=== PATIENT | female | born 1935 | race Caucasian/White ===

== ENCOUNTER 2016-04-24 08:52 | Inpatient (IN) | payer OTHER ==
--- NOTE | 2016-04-24 09:07 | CPEKG ---
Heart Rate: 93 RR Interval: 645 P-R Interval: 136 QRSD Interval: 134 QT Interval: 396 QTC Interval: [address] [place]: [address] [place]: [address] [place]: 62 EKG Severity - ABNORMAL ECG - EKG Impression: SINUS RHYTHM EKG Impression: RBBB AND LPFB EKG Impression: BORDERLINE INFERIOR Q WAVES EKG Impression: similar to previous Electronically Signed By: Mario Casiano 24-Apr-2016 10:24:05
[2016-04-24] MEDS ORDERED: ONDANSETRON 4 MG/2 ML VIAL IVP ONE (09:11)
[2016-04-24] MEDS ORDERED: NS 500 ML IV ONE (09:11)
--- NOTE | 2016-04-24 09:19 | EDPHY ---
H & P Stated Complaint: Cough x8 days, CP Source: Patient Exam Limitations: No limitations - Personal History Current Tetanus/Diphtheria Vaccine: Unsure Current Tetanus Diphtheria and Acellular Pertussis (TDAP): Unsure - Medical/Surgical History Hx Asthma: No Hx Chronic Respiratory Disease: No Hx Diabetes: No Hx Cardiac Disease: No Hx Renal Disease: No Hx Cirrhosis: No Hx Alcoholism: No Hx HIV/AIDS: No Hx Splenectomy or Spleen Trauma: No Other PMH: HTN, osteoporosis, GERD, compression fx, skin CA w muscle flap revision, aaa - Social History Smoking Status: Current every day smoker HPI/ROS: CHIEF COMPLAINT: Chest pain, cough HISTORY OF PRESENT ILLNESS: reports 10-11 days history of cough. This has been a productive cough at times and and at times dry. No shortness of breath but she has had a pleuritic, inspiratory pain in the chest and the epigastrium that started Late yesterday afternoon into the evening. It is worse with inspiration, palpation or movement of her arms. It is not necessarily worse with exertion. It does radiate but she has difficulty qualifying where this radiates to. No fever or chills. No body aches. No headaches. Nausea but no vomiting. No changes in her bowel movements. No abdominal or urinary complaints. REVIEW OF SYSTEMS: Ten systems reviewed and are negative unless otherwise noted in the HPI EXAMINATION General Appearance: Alert, no distress Head: normocephalic, atraumatic Eyes: Pupils equal and round, no conjunctival pallor or injection . EOMs intact. ENT, Mouth: Mucous membranes moist . Poor dentition. Uvula midline. No lesions or edema. Neck: Normal inspection, supple, non-tender . Painless range of motion in all planes. No meningismus. Respiratory: Scattered rhonchi. No consolidation or diminishment. Cardiovascular: Tachycardic rate of 104 beats per minute. Regular rhythm. No murmur. Pulses intact distally with good signs of perfusion. Gastrointestinal: Abdomen is soft . Moderate tenderness in the epigastrium. No tympany. No rigidity. No CVA tenderness. Nonacute abdomen. Neurological: A&O, nonfocal, normal gait . Strength symmetric in all limbs. Skin: Warm and dry, no rash Extremities: Nontender, no pedal edema Psychiatric: Mood and affect normal DIFFERENTIAL DIAGNOSES: Including but not limited to Pneumonia, bronchitis, ACS, PE, duodenitis, pancreatitis, colitis, pericarditis, pleurisy MDM: 9:20 a.m. chest pain with cough and epigastric pain. Vital signs revealed mild tachycardia but she is normotensive. She is in no acute distress. She is afebrile and has no complaints of fevers or chills recently. No headache or neck pain. No body aches. Laboratory studies have been ordered. We are ordering CT scan of the chest rule out PE and more likely pneumonia. 11:00 a.m. contacted by radiologist Dr. Ring. Notified that patient has no evidence of PE. She does have multiple findings as noted in the chart. Most significantly she has a new insufficiency fracture of the sternum and possibly of T12. She has, on the most inferior images, evidence of a AAA that is documented on previous scan. She also has old thoracolumbar fractures that are unchanged from December 2015. She also has a right lower lobe bronchus is occluded with surrounding pneumonitis but no pneumonia. I have re-evaluated the patient at this time. She is still in significant amount of pain. I will proceed with admission and we have paged the hospitalist. 11:15 a.m. I have discussed the case with the hospitalist Dr. Galindo Pardo. She has accepted the patient to the service of Dr. Justice. She is requesting an influenza swab. I asked if they would like us to draw blood cultures and lactic acid, or administer IV antibiotics, and she says that we can wait until she is evaluated by hospitalist. EKG: Interpreted by Dr. Casiano SUPERVISION:Patient was evaluated in conjunction with the supervising physician. Please see their note for details. (Reyes Shahid) Constitutional: Initial Vital Signs Temperature (C) 36.4 C 04/24/16 09:04 Heart Rate 96 04/24/16 09:04 Respiratory Rate 18 04/24/16 09:04 Blood Pressure 184/107 H 04/24/16 09:04 O2 Sat (%) 96 04/24/16 09:04 O2 Delivery Mode Room Air Allergies/Adverse Reactions: lisinopril Allergy (Verified 04/24/16 11:37) Swelling/neck,face,throat Penicillins Allergy (Verified 04/24/16 11:37) Rash Home Medications: Medication Instructions Recorded Famotidine [Pepcid 20 MG (*)] 20 mg PO DAILY 06/27/15 amLODIPine BESYLATE [Norvasc 5 mg 5 mg PO DAILY 07/06/15 (*)] Herbals/Supplements -Info Only 1 ea PO DAILY 04/24/16 amLODIPine BESYLATE [Norvasc 2.5 2.5 mg PO DAILY 04/24/16 mg (*)] Medical Decision Making Other Provider: I did evaluate this patient. She has acute reproducible sternal tenderness. This is her primary complaint. She has a barrel chest clear breath sounds. We will admit for sternal fracture, is spinal fracture of undetermined age and bronchiectasis (Mario Casiano) - Data Points Laboratory Results: Laboratory Results 04/24/16 08:55 04/24/16 08:55 04/24/16 04/24/16 04/24/16 10:09 09:17 08:55 WBC 10.44 10^3/uL H 10^3/uL (3.80-9.50) RBC 4.90 10^6/uL 10^6/uL (4.18-5.33) Hgb 15.8 g/dL g/dL (12.6-16.3) POC Hgb 15.0 gm/dL gm/dL (12.3-15.9) Hct 46.1 % % (38.0-47.0) POC Hct 44 % % (35.5-47.5) MCV 94.1 fL fL (81.5-99.8) MCH 32.2 pg pg (27.9-34.1) MCHC 34.3 g/dL g/dL (32.4-36.7) RDW 12.9 % % (11.5-15.2) Plt Count 422 10^3/uL H 10^3/uL (150-400) MPV 9.1 fL fL (8.7-11.7) Neut % (Auto) 63.7 % % (39.3-74.2) Lymph % (Auto) 24.1 % % (15.0-45.0) [place] % (Auto) 9.3 % % (4.5-13.0) Eos % (Auto) 1.5 % % (0.6-7.6) Baso % (Auto) 0.8 % % (0.3-1.7) Nucleat RBC Rel Count 0.0 % % (0.0-0.2) Absolute Neuts (auto) 6.65 10^3/uL H 10^3/uL (1.70-6.50) Absolute Lymphs (auto) 2.52 10^3/uL 10^3/uL (1.00-3.00) Absolute Monos (auto) 0.97 10^3/uL H 10^3/uL (0.30-0.80) Absolute Eos (auto) 0.16 10^3/uL 10^3/uL (0.03-0.40) Absolute Basos (auto) 0.08 10^3/uL 10^3/uL (0.02-0.10) Absolute Nucleated RBC 0.00 10^3/uL 10^3/uL (0-0.01) Immature Gran % 0.6 % % (0.0-1.1) Immature Gran # 0.06 10^3/uL 10^3/uL (0.00-0.10) POC Sodium 142 mEq/L mEq/L (134-144) Sodium POC Potassium 3.9 mEq/L mEq/L (3.3-5.0) Potassium POC Chloride 106 mEq/L mEq/L (96-108) Chloride Carbon Dioxide Anion Gap POC BUN 13 mg/dL mg/dL (7-23) BUN Creatinine POC Creatinine 0.6 mg/dL mg/dL (0.6-1.2) Estimated GFR Glucose POC Glucose 115 mg/dL H mg/dL (70-100) Calcium Total Bilirubin Conjugated Bilirubin Unconjugated Bilirubin AST ALT Alkaline Phosphatase Troponin I Total Protein Albumin Lipase Urine Color COLORLESS Urine Appearance CLEAR Urine pH 8.0 H (5.0-7.5) Ur Specific [place] 1.011 (1.002-1.030) Urine Protein NEGATIVE (NEGATIVE) Urine Ketones NEGATIVE (NEGATIVE) Urine Blood NEGATIVE (NEGATIVE) Urine Nitrate NEGATIVE (NEGATIVE) Urine Bilirubin NEGATIVE (NEGATIVE) Urine Urobilinogen NEGATIVE EU EU (0.2-1.0) Ur Leukocyte Esterase NEGATIVE (NEGATIVE) Ur Culture Indicated? NOT INDICATED (NI) Urine Glucose NEGATIVE (NEGATIVE) 04/24/16 08:55 WBC RBC Hgb POC Hgb Hct POC Hct MCV MCH MCHC RDW Plt Count MPV Neut % (Auto) Lymph % (Auto) [place] % (Auto) Eos % (Auto) Baso % (Auto) Nucleat RBC Rel Count Absolute Neuts (auto) Absolute Lymphs (auto) Absolute Monos (auto) Absolute Eos (auto) Absolute Basos (auto) Absolute Nucleated RBC Immature Gran % Immature Gran # POC Sodium Sodium 143 mEq/L mEq/L (134-144) POC Potassium Potassium 4.3 mEq/L mEq/L (3.5-5.2) POC Chloride Chloride 108 mEq/L mEq/L (97-110) Carbon Dioxide 25 mEq/l mEq/l (22-31) Anion Gap 10 mEq/L mEq/L (8-16) POC BUN BUN 14 mg/dL mg/dL (7-23) Creatinine 0.7 mg/dL mg/dL (0.6-1.0) POC Creatinine Estimated GFR > 60 Glucose 109 mg/dL H mg/dL (70-100) POC Glucose Calcium 10.0 mg/dL mg/dL (8.5-10.4) Total Bilirubin 0.7 mg/dL mg/dL (0.1-1.4) Conjugated Bilirubin 0.6 mg/dL H mg/dL (0.0-0.5) Unconjugated Bilirubin 0.1 mg/dL mg/dL (0.0-1.1) AST 22 IU/L IU/L (14-46) ALT 27 IU/L IU/L (9-52) Alkaline Phosphatase 148 IU/L H IU/L (38-126) Troponin I < 0.012 ng/mL ng/mL (0-0.034) Total Protein 7.8 g/dL g/dL (6.3-8.2) Albumin 4.1 g/dL g/dL (3.5-5.0) Lipase 53.0 IU/L IU/L (23-300) Urine Color Urine Appearance Urine pH Ur Specific [place] Urine Protein Urine Ketones Urine Blood Urine Nitrate Urine Bilirubin Urine Urobilinogen Ur Leukocyte Esterase Ur Culture Indicated? Urine Glucose Medications Given: Discontinued Medications Sodium Chloride (Ns) 500 mls @ 0 mls/hr IV ONCE ONE PRN Reason: Wide Open Stop: 04/24/16 09:12 Last Admin: 04/24/16 09:29 Dose: 500 mls Morphine Sulfate (Morphine) 4 mg IVP EDNOW ONE Stop: 04/24/16 09:17 Last Admin: 04/24/16 09:29 Dose: 4 mg Morphine Sulfate (Morphine) 4 mg IVP EDNOW ONE Stop: 04/24/16 09:49 Last Admin: 04/24/16 10:17 Dose: 4 mg Ondansetron HCl (Zofran) 4 mg IVP EDNOW ONE Stop: 04/24/16 09:12 Last Admin: 04/24/16 09:29 Dose: 4 mg Point of Care Test Results: 04/24/16 09:17 POC Sodium 142 POC Potassium 3.9 POC Chloride 106 POC BUN 13 POC Creatinine 0.6 POC Glucose 115 H Departure - Departure Disposition: [facility] Inpatient Acute Clinical Impression: Acute chest pain, Pneumonitis Sternal fracture Qualifiers: Encounter type: initial encounter Sternal location: unspecified Fracture type: closed Qualified Code(s): S22.20XA - Unspecified fracture of sternum, initial encounter for closed fracture T12 vertebral fracture Qualifiers: Encounter type: initial encounter Fracture type: closed Fracture morphology: unspecified fracture morphology Qualified Code(s): S22.089A - Unspecified fracture of T11-T12 vertebra, initial encounter for closed fracture Condition: Good
[2016-04-24 09:24] LABS: % IMMATURE GRANULYOCYTES 0.6 % (0.0-1.1); ABSOLUTE IMMATURE GRANULOCYTES 0.06 10^3/uL (0.00-0.10); ADD DIFF? NO; ADD MORPH? NO; ADD SCAN? NO; ATYPICAL LYMPHOCYTE FLAG 20 (0-99); FRAGMENT RBC FLAG 0 (0-99); HEMATOCRIT 46.1 % (38.0-47.0); HEMOGLOBIN 15.8 g/dL (12.6-16.3); LEFT SHIFT FLG 0 (0-99); LIPEMIA HEMOLYSIS FLAG 90 (0-99); MEAN CELL HEMOGLOBIN 32.2 pg (27.9-34.1); MEAN CELL HEMOGLOBIN CONCENTR. 34.3 g/dL (32.4-36.7); MEAN CELL VOLUME 94.1 fL (81.5-99.8); MEAN PLATELET VOLUME 9.1 fL (8.7-11.7); PLATELET CLUMPS FLAG 0 (0-99); PLATELET COUNT 422 10^3/uL (150-400); RED CELL DISTRIBUTION WIDTH 12.9 % (11.5-15.2)
[2016-04-24 09:26] LABS: ALANINE AMINOTRANSFERASE 27 IU/L (9-52); ALBUMIN 4.1 g/dL (3.5-5.0); ALKALINE PHOSPHATASE 148 IU/L (38-126); ANION GAP 10 mEq/L (8-16); ASPARTATE AMINOTRANSFERASE 22 IU/L (14-46); BILIRUBIN,TOTAL 0.7 mg/dL (0.1-1.4); BILIRUBIN-CONJUGATED 0.6 mg/dL (0.0-0.5); BILIRUBIN-UNCONJUGATED 0.1 mg/dL (0.0-1.1); CARBON DIOXIDE 25 mEq/l (22-31); CHLORIDE 108 mEq/L (97-110); CREATININE 0.7 mg/dL (0.6-1.0); GLOMERULAR FILTRATION RATE > 60; GLUCOSE 109 mg/dL (70-100); POTASSIUM 4.3 mEq/L (3.5-5.2); SODIUM 143 mEq/L (134-144); TOTAL PROTEIN 7.8 g/dL (6.3-8.2)
[2016-04-24 09:37] LABS: TROPONIN I < 0.012 ng/mL (0-0.034)
[2016-04-24] MEDS ORDERED: IOPAMIDOL (ISOVUE 370) 100 ML BTL IV ONE (09:40)
[2016-04-24 10:21] LABS: COLOR COLORLESS; LEUKOCYTE ESTERASE,URINE NEGATIVE (NEGATIVE); NITRITE,URINE NEGATIVE (NEGATIVE)
[2016-04-24] MEDS ORDERED: NS 1,000 ML IV SCH (12:45)
[2016-04-24] MEDS ORDERED: IBUPROFEN 200 MG TAB PO PRN (12:45)
[2016-04-24] MEDS ORDERED: ONDANSETRON 4 MG/2 ML VIAL IVP PRN (12:45)
[2016-04-24] MEDS ORDERED: ACETAMINOPHEN 325 MG TAB PO PRN (12:45)
[2016-04-24] MEDS ORDERED: ZOLPIDEM TARTRATE 5 MG TAB PO PRN (12:45)
[2016-04-24] MEDS ORDERED: BENZONATATE 100 MG CAP PO PRN (12:48)
--- NOTE | 2016-04-24 14:11 | PDGENHP ---
History and Physical History and Physical: HISTORY AND PHYSICAL ADMISSION NOTE CC: Cough and associated chest pain HISTORY: This patient is a 58 year history of smoking developed a cough about a week and half ago which has gotten worse, we little production of phlegm, no shortness of breath, no fever, no cold or flu symptoms per se. In the last 36 hours she has developed significant sharp pain at the low sternum that occurs really only during her coughing. There is no other trauma or injury there and she has no pain elsewhere. There is nothing that sounds like angina, and no pain or swelling in her legs. His no recent travel or immobilization, no weight loss. ROS: She did have some mid back pain about month ago which has improved greatly with physical therapy, no radicular symptoms. The rest of comprehensive 10 system review is negative PAST MEDICAL HISTORY: COPD Ongoing tobacco use Hypertension 3 cm abdominal aortic aneurysm Calcified lung nodules, stable on imaging Osteoporosis with compression fractures Robertson's esophagus Osteoarthritis FAMILY MEDICAL HISTORY: Hypertension SOCIAL HISTORY: Lives in a local [facility] apartment, independent Still smokes cigarettes after 62 pack years No alcohol use No falls MEDICATIONS: Her medicines are reconciled in the electronic record by our pharmacist, I have reviewed the list and ordered her home medicines as appropriate PHYSICAL EXAMINATION: Vital Signs: Hypertensive, with relatively faster heart rate though less than 100, no fever thus far Examination: General: alert, oriented, good mentation, relaxed Skin: warm, dry, good color, no rash HEENT: normal Neck: no mass or jvd No palpable adenopathy anywhere Resps: relaxed Chest: There is some significant tenderness at the inferior portion of the sternum Lungs: Very diminished but otherwise clear breath sounds Heart: regular, no murmur Abdomen: soft, nondistended, nontender, +BS, no mass Upper Extremities: normal Lower Extremities: no edema, warm, no sign of DVT No Bleeding or bruising Neurologic: normal speech/language, normal facility security officer, no focal weakness IV site: looks normal LABORATORY DATA: Mildly elevated white blood cell count otherwise unremarkable CBC, basic met panel, UA RADIOLOGY STUDIES: CT scan chest with contrast done in the ER, my review and interpretation of images: No PEs or infiltrates are present. In the right lower lobe there is some significant density in a 2nd order bronchus and there is some distal atelectasis beyond that. There are no pneumonic infiltrates. She has small calcified granulomas that were previously present. The radiologist interpretation is these nodules are stable ASSESSMENT: # pain due to a sternal insufficiency fracture caused by coughing and woman with severe osteoporosis # Either bronchopneumonia versus less likely bronchial mass but she is a long- term smoker # stable calcified lung nodules # ongoing tobacco abuse # Severe osteoporosis with compression fractures of the spine now with sternal fracture, not on therapy Will need to place her on obvious for pain management issues. At this final start with Lidoderm patches and see how much benefit we get from that and add other analgesics as needed. Plan will be to try to minimize medication side effects in this elderly woman is particularly related to falls and respiratory affects. Regarding her right bronchus finding will treat her with antibiotic with the presumption that this is infectious, however I will review her images with Dr. Adames and see if there is any reason to consider bronchoscopy. Would seem that a trial with therapy and repeat CT might be useful. Regarding her osteoporosis, she has avoided taking medications because she has some esophagitis symptoms at times and is worried about taking medicines that would affect that. She should be able to get on medications however that would be safe and effective without esophageal side effects. I will start the getting vitamin D levels and we can start appropriate vitamin D and calcium replacement therapy. It might be useful however consider seeing an tripe cooker go over a safe and effective anti resorption medicine for her. I have reviewed the patient's case in detail with Dr. Casiano I have reviewed the patient's past medical records as part of this assessment, including previous hospital visits with physician notes, laboratory and imaging results
[2016-04-24] MEDS: LIDOCAINE 5% 1 EA PATCH TD SCH (14:45)
[2016-04-24] MEDS: AZITHROMYCIN 250 MG TAB PO SCH (14:46)
[2016-04-24] MEDS: guaiFENesin 600 MG TAB.ER PO SCH ×2 (14:46→20:59)
[2016-04-24] MEDS ORDERED: PATCH REMOVAL 1 EA PATCH TD SCH (21:00)
[2016-04-25 05:25] LABS: % IMMATURE GRANULYOCYTES 0.6 % (0.0-1.1); ABSOLUTE IMMATURE GRANULOCYTES 0.05 10^3/uL (0.00-0.10); ADD DIFF? NO; ADD MORPH? NO; ADD SCAN? NO; ATYPICAL LYMPHOCYTE FLAG 10 (0-99); FRAGMENT RBC FLAG 0 (0-99); HEMATOCRIT 40.4 % (38.0-47.0); HEMOGLOBIN 13.4 g/dL (12.6-16.3); LEFT SHIFT FLG 0 (0-99); LIPEMIA HEMOLYSIS FLAG 80 (0-99); MEAN CELL HEMOGLOBIN 31.5 pg (27.9-34.1); MEAN CELL HEMOGLOBIN CONCENTR. 33.2 g/dL (32.4-36.7); MEAN CELL VOLUME 95.1 fL (81.5-99.8); MEAN PLATELET VOLUME 9.1 fL (8.7-11.7); PLATELET CLUMPS FLAG 0 (0-99); PLATELET COUNT 330 10^3/uL (150-400); RED BLOOD CELL COUNT 4.25 10^6/uL (4.18-5.33); RED CELL DISTRIBUTION WIDTH 13.1 % (11.5-15.2)
[2016-04-25 05:52] LABS: ANION GAP 7 mEq/L (8-16); CALCIUM 9.3 mg/dL (8.5-10.4); CARBON DIOXIDE 24 mEq/l (22-31); CHLORIDE 108 mEq/L (97-110); CREATININE 0.7 mg/dL (0.6-1.0); GLOMERULAR FILTRATION RATE > 60; GLUCOSE 79 mg/dL (70-100); POTASSIUM 4.5 mEq/L (3.5-5.2); SODIUM 139 mEq/L (134-144)
[2016-04-25] MEDS ORDERED: FAMOTIDINE 20 MG TAB PO SCH (09:00)
[2016-04-25] MEDS ORDERED: ENOXAPARIN 40 MG/0.4 ML SYR SC SCH (09:00)
[2016-04-25] MEDS ORDERED: amLODIPine BESYLATE 5 MG TAB PO SCH (09:00)
[2016-04-25 09:02] VITALS: RESP 20
[2016-04-25] MEDS: AZITHROMYCIN 250 MG TAB PO SCH (09:18)
[2016-04-25] MEDS: LIDOCAINE 5% 1 EA PATCH TD SCH (09:18)
[2016-04-25] MEDS: guaiFENesin 600 MG TAB.ER PO SCH (09:18)
[2016-04-25 16:15] VITALS: BP 136/76; PULSE 87; TEMP 98.1; O2SAT 89
--- NOTE | 2016-04-25 17:50 | HOSPPROG ---
Hospitalist Progress Note Assessment/Plan: DISCHARGE SUMMARY NOTE DISCHARGE DIAGNOSES: # Sternal insufficiency fracture caused by coughing with known osteoporosis # Bronchitis with mucus plugging noted in the 2nd order bronchus in the right lower lobe on CT scan # Mild COPD exacerbation and acute respiratory failure requiring oxygen # Stable pulmonary nodules on CT scan for months after there were identified in December 2015 PROCEDURES: CT scan of chest HOSPITAL COURSE SUMMARY: This patient came to the hospital complaining of ongoing cough and shortness of breath with low-grade fever. There is no definite pneumonia but there was on CT scan findings of mucous plugging in the right lower lobe. In addition the patient complains of some very sharp lower sternal pain that occurred with coughing and she was found have insufficiency fracture of the sternum with no displacement. She was admitted the hospital treated with antibiotics and Lidoderm patches as well as mucolytics and she has done very well with that here. At this point she is stable for discharge to home. Because of the insufficiency fracture of the sternum she is advised to do no lifting or heavy housework for a few weeks and her grandchildren will be taking care of that for her. Because she is a smoker of the past 62 years and has abnormal opacity in the right 2nd order bronchus is recommended that after treating her infection she have repeat CT scanning in approximately 2 months to be sure she is clearing the opacity out of her bronchus. Bronchoscopy would otherwise be indicated to rule out a mass. She is requiring home oxygen at this time so is set up with a concentrator at home. She will probably need this for 2-4 weeks. RECOMMENDED FOLLOW-UP TEST: CT SCAN OF CHEST IN 6-8 WEEKS TO EVALUATE RIGHT LOWER LOBE BRONCHUS ABNORMALITY MEDICATION CHANGES: addition of azithromycin Addition of guaifenesin and Tessalon Addition of home oxygen FOLLOW-UP PLAN: with Dr. Savana Villa in 10 days Greater than 35 minutes bedside and care coordination time today Objective: Vital Signs Temp Pulse Resp BP Pulse Ox 36.7 C 87 20 136/76 H 89 L 04/25/16 16:00 04/25/16 16:00 04/25/16 16:00 04/25/16 16:00 04/25/16 16:00 Laboratory Results 04/25/16 04:36 04/25/16 04:36 04/24/16 04/25/16 04/26/16 06:59 06:59 06:59 Intake Total 1083 Output Total 250 Balance 833 ICD10 Worksheet Patient Problems: Problems Problem Status Onset Acute chest pain Acute Pneumonitis Acute Sternal fracture Acute T12 vertebral fracture Acute Lightheadedness Acute
== END 2016-04-25 18:11 | disposition home health service (06) | DRG 542 ==
LOC: EDUNIT# → F3N 12:21
PROVIDERS: ADMIT Neurological Surgery; ATTEND Neurological Surgery
DX: M80.00XA Age-related osteoporosis with current pathological fracture, unspecified site, initial encounter for fracture (principal); J44.1 Chronic obstructive pulmonary disease with (acute) exacerbation; J96.00 Acute respiratory failure, unspecified whether with hypoxia or hypercapnia; F17.210 Nicotine dependence, cigarettes, uncomplicated; K22.70 Barrett's esophagus without dysplasia; I10 Essential (primary) hypertension; I71.4 Abdominal aortic aneurysm, without rupture; R91.8 Other nonspecific abnormal finding of lung field; Z99.81 Dependence on supplemental oxygen
CPT/HCPCS: 82947-QW; 96374; 97161-GP; 97165-GO; G8978-GP-CI; G8979-GP-CI; G8987-GO-CK; G8988-GO-CH; J1650; J2405; Q9967

== ENCOUNTER 2017-09-16 18:51 | Emergency (ER) | payer OTHER ==
--- NOTE | 2017-09-16 20:39 | EDPHY ---
HPI/HX/ROS/PE/MDM Narrative: CHIEF COMPLAINT: Right shoulder pain. HPI: This patient is a pleasant 82 year old female with history of osteoporosis and hypertension. She complains of right shoulder pain secondary to a mechanical fall around 15:00 this afternoon. She fell onto soft leather couch. Fell onto her right arm, not sure whether she threw her arm out to catch her fall or not. Did not hit her head or lose consciousness. Following this incident, her right arm was too painful to move. .Her pain is primarily over her anterior shoulder. She called a home urgent care provider who then recommended she present to ED for imaging and further evaluation. She denies any other trauma. She is not anticoagulated. She has no further complaints. REVIEW OF SYSTEMS: Aside from elements discussed in the HPI, a comprehensive 10-point review of systems was reviewed and is negative. PMH: Hypertension. Osteoporosis. History of sternum fracture. SOCIAL HISTORY: Lives in [place]. Retired. Daughter at bedside. PHYSICAL EXAM: General:Patient is alert, in no acute distress. ENT:Eyes are normal to inspection. ENT inspection normal. Neck: Normal inspection. Full range of motion. Respiratory:No respiratory distress. Breath sounds normal bilaterally. Cardiovascular: Regular rate and rhythm. Strong peripheral pulses. Normal cap refill. Back: Normal to inspection. No tenderness to palpation. Skin: Normal color. No rash. Warm and dry. Extremities: Tenderness over right anterior shoulder, pain with ROM. Neuro: Oriented x3. Normal motor function. Normal sensory function. ED Course: 82 year old female presents with right shoulder pain secondary to a mechanical fall this afternoon. Plan for x-ray right shoulder. X-ray shows comminuted nondisplaced right humeral head and neck fracture. 20:40 Reviewed images with patient. I offered admission for further observation and pain management, but the patient declines. Given her history of sternum fracture, plan for CXR to r/o any additional fractures or other trauma. CXR negative for acute trauma. See full radiologist report below. Plan to d/c home in good condition. She will follow up with an orthopedic surgeon. Right arm immobilized in sling per standard ED protocol. Provided prescription for Argyle in case of severe pain. Return precautions discussed. She is comfortable with this plan. - Data Points Imaging Results: Imaging Impressions Shoulder X-Ray 09/16/17 19:00 Impression: Comminuted nondisplaced right humeral head and neck fracture. Chest X-Ray 09/16/17 20:45 Impression: 1. Centrilobular emphysema. 2. Atherosclerotic tortuous aorta. 3. No pneumothorax or pulmonary contusion. 4. Multiple old moderate to severe mid to lower thoracic compression fractures again noted. Please clinically correlate. E:GI/amm Imaging: I viewed and interpreted images myself General Time Seen by Provider: 09/16/17 19:35 Initial Vital Signs: Initial Vital Signs Temperature (C) 36.7 C 09/16/17 18:58 Heart Rate 101 H 09/16/17 18:58 Respiratory Rate 18 09/16/17 18:58 Blood Pressure 140/80 H 09/16/17 18:58 O2 Sat (%) 94 09/16/17 18:58 O2 Delivery Mode Room Air Allergies/Adverse Reactions: lisinopril Allergy (Verified 04/24/16 11:37) Swelling/neck,face,throat Penicillins Allergy (Verified 04/24/16 11:37) Rash Home Medications: Medication Instructions Recorded Famotidine [Pepcid 20 MG (*)] 20 mg PO DAILY 06/27/15 amLODIPine BESYLATE [Norvasc 5 mg 5 mg PO DAILY 07/06/15 (*)] Herbals/Supplements -Info Only 1 ea PO DAILY 04/24/16 amLODIPine BESYLATE [Norvasc 2.5 2.5 mg PO DAILY 04/24/16 mg (*)] Acetaminophen [Tylenol 325mg (*)] 650 mg PO Q4HRS PRN #0 tab 04/25/16 Azithromycin 250 mg PO DAILY #4 tablet 04/25/16 Benzonatate [Tessalon Pear[place]] 200 mg PO TID PRN #30 cap 04/25/16 Ibuprofen [Motrin (*)] 400 mg PO Q4HRS PRN #0 tab 04/25/16 Lidocaine 5% [Lidoderm 5% Patch] 1 ea TD DAILY #30 patch 04/25/16 guaiFENesin [Mucinex 600 MG (*)] 600 mg PO BID #30 tab.er 04/25/16 Departure - Departure Disposition: Home, Routine, Self-Care Clinical Impression: Fracture of humeral head, right, closed Qualifiers: Encounter type: initial encounter Qualified Code(s): S42.291A - Other displaced fracture of upper end of right humerus, initial encounter for closed fracture Condition: Good Instructions: Hydrocodone/Acetaminophen (By mouth), Arm Fracture in Adults (ED) , Proximal Humerus Fracture (ED) Additional Instructions: Rest, ice, elevation. Take ibuprofen as directed as needed for pain. You may take Argyle as prescribed as needed for severe pain. Follow up with an orthopedic surgeon within one week. Wear sling at all times until reevaluation. Return to the emergency department for worsening pain, swelling, numbness, weakness or other concerns. Note: do not take Acetaminophen with Hydrocodone (Vicodin, Lortab) or Oycodone ( Percocet). These medications also contain Acetaminophen. No more than 3000mg of Acetaminophen should be taken in 24 hours (for an adult). Referrals: BEKA PLASENCIA [Primary Care Provider] - As per Instructions Miguel Weeks MD [Medical Doctor] - As per Instructions Report Scribed for: Rakesh Rosenbaum Report Scribed by: Shannan Pritchett Date of Report: 09/16/17 Time of Report: 20:43
[2017-09-16] MEDS ORDERED: HYDROCOD/APAP 5/325 PREPACK#6 BTL TAKEHOME ONE (21:31)
[2017-09-16 21:51] VITALS: BP 124/98
== END 2017-09-16 21:50 | disposition home or self-care (01) ==
DX: S42.291A Other displaced fracture of upper end of right humerus, initial encounter for closed fracture (principal); I10 Essential (primary) hypertension; W18.39XA Other fall on same level, initial encounter
CPT/HCPCS: 71046; 73030; A4565

== ENCOUNTER 2018-07-22 14:07 | Emergency (ER) | payer OTHER ==
--- NOTE | 2018-07-22 14:41 | EDPHY ---
H & P Stated Complaint: r flank and rlq abd pain/ hx aortic aneurysm per pt Time Seen by Provider: 07/22/18 14:45 - Personal History Current Tetanus Diphtheria and Acellular Pertussis (TDAP): No - Medical/Surgical History Hx Asthma: No Hx Chronic Respiratory Disease: No Hx Diabetes: No Hx Cardiac Disease: No Hx Renal Disease: No Hx Cirrhosis: No Hx Alcoholism: No Hx HIV/AIDS: No Hx Splenectomy or Spleen Trauma: No Other PMH: HTN, osteoporosis, GERD, compression fx, skin CA w muscle flap revision, aaa aortic aneurysm - Social History Smoking Status: Current every day smoker Constitutional: Initial Vital Signs Temperature (C) 36.6 C 07/22/18 14:15 Heart Rate 99 07/22/18 14:15 Respiratory Rate 17 07/22/18 14:15 Blood Pressure 146/90 H 07/22/18 14:15 O2 Sat (%) 93 07/22/18 14:15 O2 Delivery Mode Room Air Allergies/Adverse Reactions: lisinopril Allergy (Verified 07/24/18 20:49) Swelling/neck,face,throat Penicillins Allergy (Verified 07/24/18 20:49) Rash Home Medications: Medication Instructions Recorded amLODIPine BESYLATE [Norvasc 5 mg 10 mg PO DAILY AT 6PM 07/06/15 (*)] Sennosides/Docusate Sodium 2 each PO HS 07/24/18 [Senexon-S Tablet] Ondansetron Odt [Zofran Odt 4 mg 4 mg PO Q4 #30 tab 07/26/18 (*)] Pantoprazole Sodium [Protonix 40mg 40 mg PO DAILY #30 tab 07/26/18 (*)] oxyCODONE IR [Oxycodone Ir (*)] 2.5 mg PO Q3HRS PRN #30 tab 07/26/18 Medical Decision Making - Diagnostics Imaging: Discussed imaging studies w/ scalloper Radiologist, I viewed and interpreted images myself ED Course/Re-evaluation: CHIEF COMPLAINT: Abdominal and flank pain HISTORY OF PRESENT ILLNESS: The patient is an 83 y/o female with a history of an abdominal aortic aneurysm, GERD, and hypertension complaining of abdominal pain that is radiating around her right flank to her back. "Awhile ago" the patient was diagnosed with an AAA that measured over 6cm. She saw a specialist regarding this but declined surgery at that time. Starting Thursday night, 2 days ago she developed the abdominal pain and bloating. She had difficulty eating as it causes her symptoms to exacerbate and she starts dry heaving. She also notes that she is not passing flatulence well and has less bowel movements. No fever, headache, body aches, lightheadedness, chest pain, heart palpitations, shortness of breath , cough, urinary complaints, numbness, paresthesias. REVIEW OF SYSTEMS: A comprehensive 10 system review of systems is otherwise negative aside from elements mentioned in the history of present illness and medical decision making. PHYSICAL EXAM: HR, BP, O2 Sat, RR. Temp noted General Appearance: Alert, well hydrated, appropriate, and non-toxic appearing. Head: Atraumatic without scalp tenderness or obvious injury Eyes: Pupils equal, round, reactive to light and accommodation, EOMI, no trauma , no injection. Ears: Clear bilaterally, no perforation, normal landmarks Nose: Atraumatic, no rhinorrhea, clear. Throat: There is no erythema or exudates, no lesions, normal tonsils, mucus membranes moist. Neck: Supple, 2+ carotid upstroke, nontender, no lymphadenopathy. Respiratory: No retractions, no distress, no wheezes, and no accessory muscle use. Lungs are clear to auscultation bilaterally. Cardiovascular: Regular rate and rhythm, no murmurs, rubs, or gallops. Bilateral carotid, radial, dorsalis pedis, and posterior tibial pulses intact. Good capillary refill all extremities. Gastrointestinal: Distended abdomen with tenderness midline to right of the pericolic gutter region. Abdomen is soft, no masses, no rebound, no guarding, no peritoneal signs. Musculoskeletal: Normal active ROM of all extremities, atraumatic. Neurological: Alert, appropriate, and interactive. The patient has normal DTRs and non-focal cranial nerves, motor, sensory, and cerebellar exam. Skin: No rashes, good turgor, no nodules on palpation. Past medical history: Abdominal aortic aneurysm (over 6cm), hypertension, GERD, osteoporosis, skin cancer Past surgical history: Skin cancer surgery Family history: Denies Social history: Lives in [place], retired, family at bedside DIAGNOSTICS/PROCEDURES/CRITICAL CARE TIME: Abdominopelvic CT: Active aneurysm that has active extravasation into the mural thrombus. The posterior wall is about to dissect. No leaking outside and no dissection. DIFFERENTIAL DIAGNOSIS: The differential diagnosis for the patient's abdominal pain included but was not limited to abdominal aortic aneurysm, ovarian cyst, pelvic inflammatory disease, ovarian torsion, urinary tract infection, ectopic , cholecystitis, and appendicitis. MEDICAL DECISION MAKING: The patient is an 83 y/o female with a history of an abdominal aortic aneurysm, GERD, and hypertension presenting with abdominal pain that is radiating around her right flank to her back. "Awhile ago" the patient was diagnosed with an AAA that measured over 6cm. Starting Thursday night, 2 days ago she developed the abdominal pain and bloating. She had difficulty eating as it causes her symptoms to exacerbate and she starts dry heaving. She also notes that she is not passing flatulence well and has less bowel movements. On exam she has a distended abdomen with tenderness midline to right of the pericolic gutter region. I am concerned for a AAA rupture. Labs and abdominopelvic CT ordered; 1L IV NS and 4mg IV Zofran administered. 1647: I spoke with Dr. Beltran, radiologist, regarding this patient's abdominopelvic CT. The patient's abdominal aortic aneurysm is larger than prior. The PACS system is down so he cannot assess the entire study and measure the aneurysm. There's no sign of a leak. 1653: Reassessed patient and discussed laboratory and imaging findings. 1724: I spoke with Dr. Olmstead, radiologist regarding patient's abdominopelvic cT. There is an active aneurysm that has active extravasation into the mural thrombus. No leaking outside and no dissection. I will page the general surgeon. 1727: I consulted with Dr. Chavez, general surgeon, regarding this patient. He will come to the emergency department to consult on this patient. Patient will also need an IR evaluation. 1733: I spoke with Dr. Alberto and Dr Olmstead, radiologists, who believe that the posterior wall of the aneurysm is about to rupture. Patient will need surgery as a stent will not resolve this. 1736: Reassessed patient with Dr. Chavez and discussed new imaging report. Patient will need to be transferred to [facility] as the aneurysm is more extensive than thought. However, the patient is declining surgery or transfer to [facility]. She has the capacity to make decisions and understands the risks associated with declining surgery. She will need to be admitted for observation. I will page the hospitalist service. 20mg IV Labetalol administered to decrease her blood pressure although her current pressure is 129 /72, which will help hold off the rupture. 1748: I consulted with Dr. Chavez regarding this patient. He agrees with my plan for admission and plan to keep her pressure down. I will also consult case management at this time to see if this patient is agreeable to hospice so she doesn't need to be admitted. 1834: I consulted with the case manager specialist regarding this patient. 1842: Reassessed patient and discussed admission vs. discharge home. I discussed the consultations with the general surgeon, case manager specialist, and pharmacist (for blood pressure management). Return precautions provided; patient and her family are comfortable with this plan. - Data Points Laboratory Results: Laboratory Results 07/22/18 15:08 07/22/18 15:08 Medications Given: Discontinued Medications Sodium Chloride (Ns) 1,000 mls @ 0 mls/hr IV EDNOW ONE; Wide Open PRN Reason: Protocol Stop: 07/22/18 15:07 Last Admin: 07/22/18 15:20 Dose: 1,000 mls Labetalol HCl (Trandate Injection) 20 mg IVP EDNOW ONE Stop: 07/22/18 17:43 Last Admin: 07/22/18 18:14 Dose: 20 mg Ondansetron HCl (Zofran) 4 mg IVP EDNOW ONE Stop: 07/22/18 15:07 Last Admin: 07/22/18 15:18 Dose: 4 mg Point of Care Test Results: Chemistry 07/22/18 15:13 POC Sodium 139 mEq/L mEq/L (135-145) POC Potassium 3.6 mEq/L mEq/L (3.3-5.0) POC Chloride 105 mEq/L mEq/L (97-110) POC Total CO2 23 mEq/L mEq/L (22-31) POC BUN 23 mg/dL mg/dL (7-23) POC Creatinine 0.7 mg/dL mg/dL (0.6-1.0) POC Glucose 109 mg/dL H mg/dL (70-100) ISTAT H&H 07/22/18 15:13 POC Hgb 16.0 gm/dL gm/dL (12.6-16.3) POC Hct 47 % % (38-47) Departure - Departure Disposition: Home, Routine, Self-Care Clinical Impression: Abdominal aortic aneurysm Condition: Fair Instructions: Nonruptured Abdominal Aortic Aneurysm (DC) Additional Instructions: 1. Return to the emergency department if you would like to be admitted. 2. Follow up with your PCP. 3. Utilize the resources that the case manager specialist gave you. Referrals: Gonzalez Chavez MD [Medical Doctor] - As per Instructions Report Scribed for: Isidro Ruggiero Report Scribed by: Samanta Timmons Date of Report: 07/22/18 Time of Report: 15:03
[2018-07-22] MEDS ORDERED: ONDANSETRON 4 MG/2 ML VIAL IVP ONE (15:06)
[2018-07-22] MEDS ORDERED: NS 1,000 ML IV ONE (15:06)
[2018-07-22] MEDS ORDERED: IOPAMIDOL (ISOVUE-300) 100 ML BTL ONE (15:23)
[2018-07-22 15:26] LABS: PLATELET COUNT 284 10^3/uL (150-400)
[2018-07-22 15:41] LABS: INR 1.14 (0.83-1.16); PROTIME(PATIENT) 14.1 SEC (12.0-15.0)
[2018-07-22] MEDS ORDERED: LABETALOL HCL 5 MG/ML 20 ML MDV IVP ONE (17:42)
[2018-07-22 18:58] VITALS: BP 118/78
--- NOTE | 2018-07-22 19:19 | ASMTCMCOM ---
CM Note CM Note Notes: Case management asked to meet with patient to discuss resources for HH and palliative/hospice support. Chart reviewed and met with patient and her supportive family. Patient is 83 years old, alert and oriented X4 and certain in her decision that she does not want to have a surgical repair of her AAA. Patient states, "If I were 48 years old I would do it but I know the risks at my age and would prefer to not go through that". Patient lives alone in [place] and has family that live close and check in on her often. She tells me that she has a PCP-visiting physician-who has arranged HH for her in the past with [facility], and patient states that she would be open to receiving HH services again. Patient would not like to stay in the hospital but is open to the idea of palliative HH services and she and family were interested in more information. I have provided patient with a senior resource book and encouraged she and family to look into resources such as [facility] and other palliative/hospice options. We discussed the option of staying in the hospital for a palliative consult but patient would like to return home at this time. I offered to contact [facility] and LM regarding patient's ER visit and have them follow up with patient's PCP for a potential referral. Patient cannot recall the name of her PCP but would like me to LM with [facility] and request that they follow up with patient's PCP for a referral. This CM called the after hours call center for [facility] and LM to be called back but did not hear back from anyone after 30 minutes. PLAN: If CM receives a call back from [facility], please confirm if patient has received HH services in the past and inquire inti whether that can reach out to her PCP for a potential referral. CM available for further needs prn Date Signed: 07/22/2018 07:18 PM Electronically Signed By:Katharina Orosco RN
--- NOTE | 2018-08-05 14:08 | GCON ---
[f rep st] CONSULTATION DATE OF CONSULTATION: 07/22/2018 HISTORY OF PRESENT ILLNESS: Patient is an 83-year-old female who presents with abdominal pain and a large abdominal aortic aneurysm with some thinning of the wall and mild inflammation around the aneur ysm with possible impending signs of rupture. She has no free hemorrhage or retroperitoneal hemorrha ge. Aneurysm is 6.3 cm in diameter. I was consulted to evaluate her abdominal pain which was not cl early related to her aneurysm. She also suffers from severe constipation. ALLERGIES: Lisinopril and penicillin. PRESENT MEDICATIONS: Protonix, oxycodone, Zofran, Norvasc, and senna. PAST MEDICAL HISTORY: Includes a known abdominal aortic aneurysm, GERD, hypertension, and chronic co nstipation. PAST SURGICAL HISTORY: She had a skin cancer removal. SOCIAL HISTORY: Reveals that she does not smoke. FAMILY HISTORY: Noncontributory. REVIEW OF SYSTEMS: Negative on a full 10-point review of systems. PHYSICAL EXAMINATION: GENERAL: An alert but comfortable 83-year-old female in no acute distress. V ITAL SIGNS: She is afebrile. HEENT: Reveals her to be nonicteric. PERRLA with EOMs intact. No or al lesions. NECK: Supple, without bruits or adenopathy. CHEST: Clear and symmetric. CARDIAC: Re veals a regular rhythm without murmurs. ABDOMEN: Soft. She has a palpable abdominal aneurysm which is not particularly tender. She has positive bowel sounds. There are no other masses or hernias pr esent. EXTREMITIES: Reveal full range of motion, full distal pulses. NEUROLOGIC: Physiologic and symmetric. PSYCH: She appears to be alert, oriented, and cooperative. IMPRESSION: A serious abdominal aneurysm, however, it involves her renals and mesenteric vessels. A t this size aneurysm, she should have surgical repair, although that was markedly complicated with me senteric involvement, and [facility] another center that deals with this kind of aneurysm. Risks and options have been fully discussed with the patient. Yury monet, however, refuses to have surgical intervention or any care for the aneurysm and is willing to have matters take their course. She does not want admission or a surgical intervention. We have fully d iscussed the risks and options and the potential life-threatening nature of the situation, and she is persistent in her desire for no surgical intervention. /[id number]/MODL
== END 2018-07-22 19:06 | disposition home or self-care (01) ==
DX: I71.4 Abdominal aortic aneurysm, without rupture (principal); E86.9 Volume depletion, unspecified; I10 Essential (primary) hypertension; K21.9 Gastro-esophageal reflux disease without esophagitis
CPT/HCPCS: 74177; 96361; 96374; 96375; 99285; J2405; Q9967; 82435-PO; 82565-PO; 82947-PO; 84132-PO; 84295-PO; 84520-PO; 85014-ER

== ENCOUNTER 2018-07-24 20:41 | Observation (INO) | payer OTHER ==
[2018-07-24] MEDS ORDERED: LABETALOL HCL 5 MG/ML 20 ML MDV ONE (20:54)
[2018-07-24] MEDS ORDERED: LABETALOL HCL 5 MG/ML 20 ML MDV IVP ONE (20:54)
[2018-07-24] MEDS ORDERED: fentaNYL 100 MCG/2 ML INJ IVP ONE (21:03)
[2018-07-24] MEDS ORDERED: ONDANSETRON 4 MG/2 ML VIAL IVP ONE (21:03)
--- NOTE | 2018-07-24 21:09 | EDPHY ---
H & P Time Seen by Provider: 07/24/18 20:47 HPI/ROS: CHIEF COMPLAINT: Abdominal pain HISTORY OF PRESENT ILLNESS: The patient is an 83-year-old female with a history of abdominal aortic aneurysm, GERD and hypertension who presents to the emergency department with severe abdominal pain. Patient was seen in the emergency department on 07/22/2018. At that time she was diagnosed with a severe abdominal aortic aneurysm that was impending rupture. Arrangement was made to transfer the patient [facility] for emergent surgery. However , after extensive discussion the patient decided she did not want surgery. Case management also saw the patient. The patient confirms today that she does not want surgery. Rather, she came to the emergency department for pain management. She would also like to see hospice. Patient's son is present as well. REVIEW OF SYSTEMS: 10 systems were reveiwed and are negative with the exception of the elements mentioned in the history of present illness. Past Medical/Surgical History: Includes abdominal aortic aneurysm, hypertension, GERD, osteoporosis, skin cancer Past surgical history: Includes skin cancer surgery Social history: The patient smokes Smoking Status: Current every day smoker Physical Exam: Vitals noted. Hypertension GENERAL: Mild acute distress, alert. HEENT: Eyes normal to inspection, normal pharynx, no signs of dehydration. NECK: Normal, supple. RESPIRATORY: Clear to auscultation bilaterally, no rales, rhonchi or wheezing. CVS: Regular rate and rhythm, no rubs, murmurs, or gallops. ABDOMEN: Soft, mild distension, midline abdominal tenderness palpation with no rebound or guarding. No palpable mass. BACK: Normal to inspection, no CVA tenderness. SKIN: Normal color, no rash, warm, dry. No pallor. EXTREMITIES: No pedal edema, no calf tenderness, no Homans sign or cords, no joint swelling. NEURO/PSYCH: Alert and oriented, normal mood and affect, normal motor sensory exam. No obvious cranial nerve deficit. Constitutional: Initial Vital Signs Temperature (C) 36.9 C 07/24/18 20:49 Heart Rate 87 07/24/18 20:49 Respiratory Rate 20 07/24/18 20:49 Blood Pressure 135/99 H 07/24/18 20:49 O2 Sat (%) 93 07/24/18 20:49 O2 Delivery Mode Room Air Allergies/Adverse Reactions: lisinopril Allergy (Verified 07/24/18 20:49) Swelling/neck,face,throat Penicillins Allergy (Verified 07/24/18 20:49) Rash Home Medications: Medication Instructions Recorded amLODIPine BESYLATE [Norvasc 5 mg 7.5 mg PO DAILY 07/06/15 (*)] Cholecalciferol Vit D3 [Vitamin D3 1,000 units PO DAILY 07/22/18 (*)] Esomeprazole Mag Trihydrate 40 mg PO DAILY 07/22/18 [Nexium] Ibuprofen [Motrin (*)] 200 - 400 mg PO Q6HRS PRN 07/22/18 Medical Decision Making Procedures: Procedure: Bedside abdominal aortic ultrasound Indication: Abdominal aortic aneurysm Bedside ultrasound was performed. The patient had a notably enlarged aorta. There is significant thrombus in the aorta. ED Course/Re-evaluation: In the emergency department I met the patient on arrival. I reviewed the patient's previous medical record. Discussed case with both the patient and her son. The patient confirms that she does not want surgery and she wants to be placed in pale ED of care. The patient was given labetalol 10 mg IV. A bedside ultrasound was performed. This revealed a large aortic aneurysm with notable clot. I discussed the findings with the patient. She did not want repeat CT imaging. I again discussed the diagnosis with the patient and son. The patient has capacity make her decision. She appeared competent. Patient was given fentanyl 50 mcg IV and Zofran 4 mg IV. Discussed case with the hospitalist Dr. Mclean. She will admit. Repeat blood pressure improved post labetalol. Heart rate 77. I discussed both esmolol and nitroprusside with Dr. Mclean. She would prefer to stick with labetalol as the patient is going to be placed on hospice care and going to the floor for admission. EKG: Sinus rhythm at 76. Right bundle branch block and LPFB Differential Diagnosis: My differential includes but is not limited to aortic aneurysm, ruptured aortic aneurysm, dissection, anemia - Data Points Laboratory Results: 07/24/18 07/24/18 07/24/18 20:59 20:59 20:59 WBC Pending RBC Pending Hgb Pending Hct Pending MCV Pending MCH Pending MCHC Pending RDW Pending Plt Count Pending MPV Pending Neut % (Auto) Pending Lymph % (Auto) Pending [place] % (Auto) Pending Eos % (Auto) Pending Baso % (Auto) Pending Nucleat RBC Rel Count Pending Absolute Neuts (auto) Pending Absolute Lymphs (auto) Pending Absolute Monos (auto) Pending Absolute Eos (auto) Pending Absolute Basos (auto) Pending Absolute Nucleated RBC Pending Immature Gran % Pending Immature Gran # Pending PT Pending INR Pending APTT Pending Sodium Pending Potassium Pending Chloride Pending Carbon Dioxide Pending Anion Gap Pending BUN Pending Creatinine Pending Estimated GFR Pending Glucose Pending Calcium Pending Medications Given: Discontinued Medications Fentanyl (Sublimaze) 50 mcg IVP EDNOW ONE Stop: 07/24/18 21:04 Last Admin: 07/24/18 21:07 Dose: 50 mcg Labetalol HCl (Trandate Injection) 10 mg IVP EDNOW ONE Stop: 07/24/18 20:55 Last Admin: 07/24/18 20:55 Dose: 10 mg Ondansetron HCl (Zofran) 4 mg IVP EDNOW ONE Stop: 07/24/18 21:04 Last Admin: 07/24/18 21:07 Dose: 4 mg Departure - Departure Disposition: [facility] Inpatient Acute Clinical Impression: Abdominal aortic aneurysm (AAA) Qualifiers: Presence of rupture: without rupture Qualified Code(s): I71.4 - Abdominal aortic aneurysm, without rupture Condition: Serious
[2018-07-24 21:17] LABS: PLATELET COUNT 245 10^3/uL (150-400)
[2018-07-24 21:32] LABS: INR 1.15 (0.83-1.16); PROTIME(PATIENT) 14.2 SEC (12.0-15.0)
[2018-07-24] MEDS ORDERED: POLYETHYLENE GLYCOL 3350 17 GM PKT PO PRN (22:13)
[2018-07-24] MEDS ORDERED: morphINE 10 MG/0.5 ML UDSYR PO PRN (22:13)
[2018-07-24] MEDS ORDERED: LORazepam 1 MG TAB PO PRN (22:13)
[2018-07-24] MEDS ORDERED: ONDANSETRON DISINTEGRATING 4 MG TAB PO PRN (22:13)
[2018-07-24] MEDS ORDERED: LORazepam 2 MG/ML INJ IVP PRN (22:13)
[2018-07-24] MEDS ORDERED: ONDANSETRON 4 MG/2 ML VIAL IVP PRN (22:13)
[2018-07-24] MEDS ORDERED: PROMETHAZINE HCL 25 MG/ML INJ IVP PRN (22:13)
[2018-07-24] MEDS ORDERED: BISACODYL 10 MG SUPP PR PRN ×2 (22:13)
[2018-07-24] MEDS ORDERED: HYDROCODONE/APAP 5/325 TAB PO PRN (22:13)
[2018-07-24] MEDS ORDERED: LACTULOSE 20 GM/30 ML UDCUP PO PRN (22:13)
[2018-07-24] MEDS ORDERED: HYDROmorphONE/DILAUDID 1 MG/ML INJ IVP PRN (22:13)
[2018-07-24] MEDS ORDERED: MAGNESIUM HYDROXIDE 30 ML UDCUP PO PRN (22:13)
[2018-07-24] MEDS ORDERED: ACETAMINOPHEN 325 MG TAB PO PRN (22:13)
--- NOTE | 2018-07-24 22:13 | CPEKG ---
Test Reason : OPEN Blood Pressure : / mmHG Vent. Rate : 076 BPM Atrial Rate : 076 BPM P-R Int : 153 ms QRS Dur : 152 ms QT Int : 452 ms P-R-T Axes : 076 101 032 degrees QTc Int : 509 ms Sinus rhythm RBBB and LPFB Confirmed by Cynthia Parish [id number]) on 07/24/2018 10:12:43 PM Referred By: CYNTHIA PARISH Confirmed By:Cynthia Parish
[2018-07-24] MEDS ORDERED: SENNOSIDES/DOCUSATE SODIUM TAB PO SCH (22:30)
[2018-07-24] MEDS ORDERED: LABETALOL HCL 5 MG/ML 20 ML MDV IVP PRN (22:51)
--- NOTE | 2018-07-24 22:57 | PDGENHP ---
History and Physical - Chief Complaint abdominal pain radiating to back - History of Present Illness 83 yo F with PMH that includes HTN, osteoporosis and GERD as well as a AAA that she was seen in ER for 2 days prior at which time it was noted to be very large and showing signs of impending rupture. Surgery was consulted and initially there were plans to transfer patient to [facility] for emergent surgery, however she ultimately clearly stated that she did not wish to have any kind of aggressive management including surgery, even if this were certain to lead to her untreated, and therefore she was discharged home. She notes she initially was doing well, however today she experienced recurrent severe lower abdominal pain radiating to her back along with significant anxiety and she comes to the ER now for symptom management and to establish care with hospice. She is accompanied by her 2 children, her niece and her son in law are all present at bedside and are all in agreement with that plan. Her pain is greatly improved following a dose of fentanyl and labetalol in ER. Her only other complaint is chronic constipation. History Information - Allergies/Home Medication List Allergies/Adverse Reactions: lisinopril Allergy (Verified 07/24/18 20:49) Swelling/neck,face,throat Penicillins Allergy (Verified 07/24/18 20:49) Rash Home Medications: amLODIPine BESYLATE [Norvasc 5 mg (*)] 7.5 mg PO DAILY 07/06/15 [Last Taken ] Cholecalciferol Vit D3 [Vitamin D3 (*)] 1,000 units PO DAILY 07/22/18 [Last Taken 07/22/18] Esomeprazole Mag Trihydrate [Nexium] 40 mg PO DAILY 07/22/18 [Last Taken ] Ibuprofen [Motrin (*)] 200 - 400 mg PO Q6HRS PRN 07/22/18 [Last Taken Unknown] Sennosides/Docusate Sodium [Senexon-S Tablet] 2 each PO HS 07/24/18 [Last Taken 07/23/18] I have personally reviewed and updated: family history, medical history, social history, surgical history - Past Medical History GERD, hypertension, osteoporosis Additional medical history: AAA with impending rupture - Surgical History Reports: no pertinent surgical hx - Family History Positive for: non-pertinent - Social History Smoking Status: Current every day smoker Alcohol Use: Rarely Drug Use: None Additional social history: lives independently, lots of family involved Review of Systems Review of Systems: ROS: 10pt was reviewed & negative except for what was stated in HPI & below Physical Exam Physical Exam: Temp Pulse Resp BP Pulse Ox 37.3 C 75 16 135/76 H 92 07/24/18 22:02 07/24/18 22:02 07/24/18 22:02 07/24/18 22:02 07/24/18 22:02 Constitutional: no apparent distress, chronically ill appearing Eyes: PERRL, anicteric sclera Ears, Nose, Mouth, Throat: moist mucous membranes, hearing normal Cardiovascular: regular rate and rhythym, no murmur, rub, or gallop, No edema Respiratory: no respiratory distress, no rales or rhonchi Gastrointestinal: tenderness, No guarding, No rebound Genitourinary: no bladder tenderness Skin: warm, normal color Musculoskeletal: full muscle strength Neurologic: AAOx3 Psychiatric: interacting appropriately, not anxious, not encephalopathic Lab Data & Imaging Review 07/24/18 20:59 07/24/18 20:59 WBC 9.67 10^3/uL (3.80-9.50) H 07/24/18 20:59 RBC 4.86 10^6/uL (4.18-5.33) 07/24/18 20:59 Hgb 14.6 g/dL (12.6-16.3) 07/24/18 20:59 Hct 43.4 % (38.0-47.0) 07/24/18 20:59 MCV 89.3 fL (81.5-99.8) 07/24/18 20:59 MCH 30.0 pg (27.9-34.1) 07/24/18 20:59 MCHC 33.6 g/dL (32.4-36.7) 07/24/18 20:59 RDW 13.2 % (11.5-15.2) 07/24/18 20:59 Plt Count 245 10^3/uL (150-400) 07/24/18 20:59 MPV 9.2 fL (8.7-11.7) 07/24/18 20:59 Neut % (Auto) 70.3 % (39.3-74.2) 07/24/18 20:59 Lymph % (Auto) 19.9 % (15.0-45.0) 07/24/18 20:59 [place] % (Auto) 8.4 % (4.5-13.0) 07/24/18 20:59 Eos % (Auto) 0.6 % (0.6-7.6) 07/24/18 20:59 Baso % (Auto) 0.5 % (0.3-1.7) 07/24/18 20:59 Nucleat RBC Rel Count 0.0 % (0.0-0.2) 07/24/18 20:59 Absolute Neuts (auto) 6.80 10^3/uL (1.70-6.50) H 07/24/18 20:59 Absolute Lymphs (auto) 1.92 10^3/uL (1.00-3.00) 07/24/18 20:59 Absolute Monos (auto) 0.81 10^3/uL (0.30-0.80) H 07/24/18 20:59 Absolute Eos (auto) 0.06 10^3/uL (0.03-0.40) 07/24/18 20:59 Absolute Basos (auto) 0.05 10^3/uL (0.02-0.10) 07/24/18 20:59 Absolute Nucleated RBC 0.00 10^3/uL (0-0.01) 07/24/18 20:59 Immature Gran % 0.3 % (0.0-1.1) 07/24/18 20:59 Immature Gran # 0.03 10^3/uL (0.00-0.10) 07/24/18 20:59 PT 14.2 SEC (12.0-15.0) 07/24/18 20:59 INR 1.15 (0.83-1.16) 07/24/18 20:59 APTT 27.2 SEC (23.0-38.0) 07/24/18 20:59 Sodium 137 mEq/L (135-145) 07/24/18 20:59 Potassium 3.8 mEq/L (3.5-5.2) 07/24/18 20:59 Chloride 103 mEq/L (97-110) 07/24/18 20:59 Carbon Dioxide 21 mEq/l (22-31) L 07/24/18 20:59 Anion Gap 13 mEq/L (6-14) 07/24/18 20:59 BUN 27 mg/dL (7-23) H 07/24/18 20:59 Creatinine 0.7 mg/dL (0.6-1.0) 07/24/18 20:59 Estimated GFR > 60 07/24/18 20:59 Glucose 115 mg/dL (70-100) H 07/24/18 20:59 Calcium 9.8 mg/dL (8.5-10.4) 07/24/18 20:59 Visualized and Interpreted imaging results: Yes Interpretation: CT abdomen from 07/22: large AAA with several signs of impending rupture and severe constipation Assessment & Plan Assessment: Abdominal aortic aneurysm (AAA) (Acute) 83 yo F with PMH of HTN and recently diagnosed AAA with impending rupture admitted with abdominal pain # AAA: with evidence of impending rupture on imaging, patient very clear she does not want surgical management, will continue prn labetalol overnight for goal sbp < 140 and otherwise comfort measures # abdominal pain: secondary to above, started on comfort care protocol, she is overall relatively comfortable currently and improved with better bp control # htn: as above, labetalol prn, will resume home medication of amlodipine # constipation: noted to be severe on imaging, bowel protocol # DNR # goals of care: patient hoping to go home with hospice in the am, her life expectancy is clearly not very long given impending rupture with e/o partial rupture on bedside US today--hospice consult placed, comfort orders Patient new to my care. Old records reviewed and summarized as above. Care plan reviewed with ER doctor and further hx obtained from family present at bedside.
[2018-07-25] MEDS: oxyCODONE IR 5 MG TAB PO PRN ×4 (04:54→21:02)
[2018-07-25] MEDS ORDERED: amLODIPine BESYLATE 5 MG TAB PO SCH (09:00)
--- NOTE | 2018-07-25 09:41 | ASMTCMCOM ---
CM Note CM Note Notes: Spoke w/MD, pt wants hospice. Lives alone but has alot of family, [facility], referral sent. Met with pt and family who agree with plan. Pt's son Adonay ([phone]) willing to be point person for contact DC Plan: Hospice Date Signed: 07/25/2018 09:40 AM Electronically Signed By:Marisol Shaikh RN
[2018-07-25] MEDS: SENNOSIDES/DOCUSATE SODIUM TAB PO SCH ×2 (09:53→19:08)
[2018-07-25] MEDS: PANTOPRAZOLE SODIUM 40 MG TAB PO SCH (09:54)
--- NOTE | 2018-07-25 13:09 | HOSPPROG ---
Hospitalist Progress Note Assessment/Plan: #Impending rupture of AAA -pt clearly states no surgical intervention -PRN labetalol SBP <140 #Abdominal pain: well-controlled on oxycodone #Constipation: bowel reg #HTN: Norvasc #Goals: hospice with pain control. [facility] to evaluate this afternoon Subjective: had BM. Pain controllled Objective: Vital Signs Temp Pulse Resp BP Pulse Ox 37.4 C 80 16 120/79 91 L 07/25/18 12:00 07/25/18 12:00 07/25/18 12:00 07/25/18 12:00 07/25/18 12:00 07/24/18 07/25/18 07/26/18 05:59 05:59 05:59 Intake Total 20 Balance 20 PT 14.2 SEC (12.0-15.0) 07/24/18 20:59 INR 1.15 (0.83-1.16) 07/24/18 20:59 - Time Spent With Patient Time Spent with Patient: greater than 35 minutes Time Spent with Patient: Greater than 35 minutes spent on this patients care, greater than 50% of time spent counseling, educating, and coordinating care regarding the above mentioned plan. - Physical Exam Constitutional: no apparent distress, cachectic (thin) Eyes: PERRL Ears, Nose, Mouth, Throat: moist mucous membranes Cardiovascular: regular rate and rhythym Respiratory: no respiratory distress Gastrointestinal: other (abdominal distension RLQ, mild TTP) Musculoskeletal: full muscle strength Neurologic: AAOx3, CN II-XII Intact Psychiatric: interacting appropriately ICD10 Worksheet Patient Problems: Problems Problem Status Onset Lightheadedness Acute Acute chest pain Acute Sternal fracture Acute T12 vertebral fracture Acute Pneumonitis Acute Abdominal aortic aneurysm (AAA) Acute
--- NOTE | 2018-07-25 13:18 | PDIAF ---
- Diagnosis Diagnosis: AAA Code Status: Do Not Resuscitate - Medication Management Discharge Medications: electronically signed and located in the Home Medication List. - Orders Services needed: Home Retirement Care Face to Face: I certify that this patient was under my care and that I had the required [id number] encounter meeting the encounter requirements on the discharge day. My findings support the fact that the patient is homebound as defined in Home Care Face to Face Continued: CMS Chapter 7 Medicare Benefits Manual 30.1.1 , The condition of the patient is such that there exists a normal inability to leave home and consequently, leaving home would require a considerable and taxing effort. Diet Recommendation: no restrictions on diet Diet Texture: Regular Texture Diet Additional Instructions: Hospice care - Follow Up Care Current Providers and Referrals: NONE *PRIMARY CARE P,. [Primary Care Provider] - As per Instructions
--- NOTE | 2018-07-25 17:06 | ASMTCMCOM ---
CM Note CM Note Notes: Cynthia from [facility] here to meet with pt and family. There is a bed at the carecenter, but pt does not want to be transferred tonight. Pt and family still vascillating between home w/hospice vs carecenter. Cynthia will return tomorrow morning at 10 to continue conversation with family. DC Plan: [facility] Date Signed: 07/25/2018 05:05 PM Electronically Signed By:Marisol Shaikh RN
[2018-07-26] MEDS: oxyCODONE IR 5 MG TAB PO PRN (05:42)
[2018-07-26] MEDS: SENNOSIDES/DOCUSATE SODIUM TAB PO SCH (08:02)
[2018-07-26] MEDS: PANTOPRAZOLE SODIUM 40 MG TAB PO SCH (08:02)
[2018-07-26 08:05] VITALS: BP 125/76
[2018-07-26] MEDS ORDERED: oxyCODONE IR 5 MG TAB PO PRN (08:41)
--- NOTE | 2018-07-26 10:48 | PDIAF ---
- Diagnosis Diagnosis: AAA Code Status: Do Not Resuscitate - Medication Management Discharge Medications: electronically signed and located in the Home Medication List. - Orders Services needed: Home [facility] Face to Face: I certify that this patient was under my care and that I had the required [id number] encounter meeting the encounter requirements on the discharge day. My findings support the fact that the patient is homebound as defined in Home Care Face to Face Continued: CMS Chapter 7 Medicare Benefits Manual 30.1.1 , The condition of the patient is such that there exists a normal inability to leave home and consequently, leaving home would require a considerable and taxing effort. Diet Recommendation: no restrictions on diet Diet Texture: Regular Texture Diet Additional Instructions: Hospice care - Follow Up Care Current Providers and Referrals: NONE *PRIMARY CARE P,. [Primary Care Provider] - As per Instructions
--- NOTE | 2018-07-26 11:08 | ASDISCHSUM ---
Discharge Information Plan Status:Hospice-Home Medically Cleared to Leave:07/26/2018 Discharge Date:07/26/2018 CM D/C Disposition:Hospice Home ADT D/C Disposition:Home, Routine, Self-Care Projected Discharge Date:07/25/2018 11:00 AM Transportation at D/C:Family Discharge Delay Reason: Follow-Up Date:07/25/2018 11:00 AM Discharge Slot: Final Diagnosis:AAA Placement Information Referral Type:*Hospice Referral ID:[id number] Provider Name:[facility] Address 1:[address] [place] [address] Dr [address] Address 2: City:[place] Selection Factors: State:[place] Patient Contact Information Contact Name:GAURAV Relationship:Son Address:[address] City: [facility] Phone: State/Zip Code: Email: Financial Information Financial Class:Medicare Primary Plan Desc:MEDICARE OUTPATIENT Primary Plan Number:[id number] Secondary Plan Desc: Secondary Plan Number: Assessment Information [facility] CM Progress Note CM Note CM Note Notes: Spoke w/, pt wants hospice. Lives alone but has alot of family, may qualify for carecenter, referral sent. Met with pt and family who agree with plan. Pt's son Adonay ([phone]) willing to be point person for contact DC Plan: Hospice Date Signed: 07/25/2018 09:40 AM Electronically Signed By:Marisol Shaikh RN LACE LACE Length of stay for Answers: 2 days current admission Acuity / Level of Answers: No Care: Did the patient have an inpatient admission? Comorbidities - select Answers: Cerebrovascular disease all that apply (CVA, TIA, aneurysms, vasc ular dementia) Other Notes: HTN, AAA # of Emergency department Answers: 1-2 visits in the last 6 months Score: 5 Date Signed: 07/26/2018 11:07 AM Electronically Signed By:Yamilet Cordero [facility] CM Progress Note CM Note MELI Note Notes: Cynthia from [facility] here to meet with pt and family. [facility] not want to be transferred tonight. Pt and family still vascillating between [facility] vs [facility]. Cynthia will return tomorrow morning at 10 to continue conversation with family. DC Plan: [facility] Date Signed: 07/25/2018 05:05 PM Electronically Signed By:Marisol Shaikh RN Case Management Discharge Plan Note Case Management Discharge Discharge Order Complete? Answers: Yes Patient to Obtain Answers: Other Notes: Bedside Delivery Medications Transportation Arranged Answers: Family/Friends Transport will Pick (Date 07/26/2018 12:00 AM & Time) Faxed Final Orders Answers: Yes Agency/Facility Transfer Answers: Yes Report Printed & Faxed to Receiving Agency Family Notified Answers: Yes Notes: family meeting in the room Discharge Comments Notes: MELI, Hospitalist and Cynthia JACKSON from [facility] met with pt and family in the room. Hospitalist answered family's questions regarding discharge home with hospice and follow up care with [facility]. Family to provide transport home and will be taking turns spending the night with her. No therapies ordered during this admission. No further CM needs noted at this time. Date Signed: 07/26/2018 11:06 AM Electronically Signed By:Yamilet Cordero Intervention Information Intervention Type:*NEGRITO-Signed Date of Service:07/26/2018 10:14 AM Patient Type:Observation Staff Member:Gricel Schmidt Hours: Discipline: Severity: Comment:
--- NOTE | 2018-07-26 13:19 | GDS ---
[f rep st] DISCHARGE SUMMARY DISCHARGE DIAGNOSES: 1. Hypertension. 2. Abdominal pain. 3. Constipation. 4. Abdominal aortic aneurysm with evidence of impending rupture. HISTORY OF PRESENT ILLNESS: A pleasant 83-year-old female with hypertension, osteoporosis, GERD and AAA, who was seen July 22, with abdominal pain and was noted the aneurysm was very large and showing s igns of impending rupture. Surgery was consulted and there are plans for transfer to [facility] for emergen t surgery. The patient clearly stated she did not want any aggressive treatment and would like to tr ansition to comfort measures. HOSPITAL COURSE BY PROBLEM: 1. AAA with evidence of impending rupture: Pain has been controlled on low-dose oxycodone. Continu e Norvasc for blood pressure control. 2. Abdominal pain due to above and constipation: This is improved. Continue senna. 3. Hypertension: Continue Norvasc. 4. GERD: PPI. 5. Constipation: Senna, MiraLAX. GOALS: I met with family and [facility]. The patient clearly wants to be in her own apartment. Jon edgary will take turns and be home with her. [facility] will assist with further pain management. Patient is stable for discharge to home with family, [facility]. NEW MEDICATIONS: 1. Zofran. 2. Oxycodone. FOLLOWUP: Follow up with [facility]. PHYSICAL EXAMINATION: VITAL SIGNS: Temperature 37, blood pressure 125/76, heart rate in the 80s, re spirations 16, 90% on room air. GENERAL: Thin, in no acute distress. HEENT: PERRLA. Moist mucous membranes. CV: Regular rate and rhythm. LUNGS: Clear. ABDOMEN: Distention in right lower quadr ant. Minimal pain. NEUROLOGIC: Two through 12 are intact. PSYCH: Alert and oriented x3. Time spent on discharge greater than 60 minutes bedside counseling patient/family with [facility] an hugh coordinating with case management. /[id number]/MODL
== END 2018-07-26 11:50 | disposition hospice, home (50) ==
LOC: F3E 22:02
PROVIDERS: ADMIT Internal Medicine; ATTEND Internal Medicine
DX: I71.4 Abdominal aortic aneurysm, without rupture (principal); R10.9 Unspecified abdominal pain; I10 Essential (primary) hypertension; K59.00 Constipation, unspecified; F17.200 Nicotine dependence, unspecified, uncomplicated; M81.0 Age-related osteoporosis without current pathological fracture; K21.9 Gastro-esophageal reflux disease without esophagitis; Z85.828 Personal history of other malignant neoplasm of skin; Z88.0 Allergy status to penicillin; Z66 Do not resuscitate
CPT/HCPCS: 93005; 96374; 96375; 99285; G0378; J1170; J2405; J2550; J3010